=== PATIENT | female | born 1955 | race Caucasian/White ===

== ENCOUNTER → 2024-09-12 14:31 | Outpatient (REF) | payer MEDICARE, OTHER, SELFPAY | LOC: HWWDC 14:31 | PROVIDERS: ATTENDING PHYSICIAN Internal Medicine | DX: Z12.31 Encounter for screening mammogram for malignant neoplasm of breast (principal) | CPT/HCPCS: 77063; 77067 ==

== ENCOUNTER 2025-04-03 06:21 | Day surgery (SDC) | payer MEDICARE, OTHER, SELFPAY | END 2025-04-03 14:22 | disposition home or self-care (01) | LOC: GI 06:21 | PROVIDERS: ATTENDING PHYSICIAN Internal Medicine Gastroenterology | DX: Z12.11 Encounter for screening for malignant neoplasm of colon (principal); K57.30 Diverticulosis of large intestine without perforation or abscess without bleeding; K64.8 Other hemorrhoids; D12.0 Benign neoplasm of cecum; D12.3 Benign neoplasm of transverse colon; K63.5 Polyp of colon; K62.1 Rectal polyp | CPT/HCPCS: 45385; 45380; 88305 ==

== ENCOUNTER → 2025-09-14 10:21 | Outpatient (REF) | payer MEDICARE, OTHER, SELFPAY | LOC: HWWDC 10:21 | PROVIDERS: ATTENDING PHYSICIAN Internal Medicine | DX: Z12.31 Encounter for screening mammogram for malignant neoplasm of breast (principal) | CPT/HCPCS: 77063; 77067 ==